=== PATIENT | male | born 1955 | race Caucasian/White ===

== ENCOUNTER 2021-01-11 08:22 | Outpatient (CLI) | payer BC, SELFPAY | END 2021-01-11 08:23 | disposition home or self-care (01) | LOC: ANHAUDIO 08:24 | PROVIDERS: PCP Internal Medicine; Visit Provider Nurse Practitioner Family | DX: H93.13 Tinnitus, bilateral (principal); R42 Dizziness and giddiness; H90.3 Sensorineural hearing loss, bilateral | CPT/HCPCS: 92537; 92540; 92546; 92557; 92567 ==

== ENCOUNTER 2023-12-13 11:26 | Outpatient (CLI) | payer MEDICARE, SELFPAY ==
--- NOTE | ~2023-12-13 | CT_ITS ---
Non-contrast Head CT History: Headache Technique: Axial non-contrast imaging of the brain was performed. Dose reduction technique was used on this scan by utilizing automated exposure control and iterative reconstruction technique. The dose -length product (DLP) was 674.51 mGy-cm. Findings: There is no evidence of intracranial hemorrhage, mass lesion, or acute infarct. Brain par enchyma appears normal. The ventricles and subarachnoid spaces are normal in size. The calvarium ap pears normal. The visualized paranasal sinuses and mastoid air cells are clear. Impression: No significant abnormality seen. Reviewed, dictated and finalized at location . [employer] Impression: No significant abnormality seen.
== END 2023-12-13 11:27 ==
PROVIDERS: Visit Provider Internal Medicine
DX: R51.9 Headache, unspecified (principal)
CPT/HCPCS: 70450

== ENCOUNTER 2024-03-07 00:09 | Day surgery (SDC) | payer MEDICARE, SELFPAY ==
[2024-02-27 12:21] VITALS: BMI 24.6
--- NOTE | 2024-02-28 14:46 | PC.NURSE ---
Spoke with Jean-Pierre regarding his Plavix. Pt. verbalizes understanding that the last dose of Plavix is to be taken on 03/02/24 and the Endoscopist will instruct them when to restart after the procedure.
[2024-03-07 06:24] VITALS: BP 114/75; PULSE 88; RESP 18; TEMP 36; O2SAT 99; BMI 24.0
[2024-03-07] MEDS: LACTATED RINGERS 1,000 ML 150 ML IV CONT (06:27)
--- NOTE | 2024-03-07 07:23 | PM.HPGS ---
History of Present Illness History of Present Illness Consent: Risks, benefits, and alternatives have been discussed and questions answered. Patient agrees to proceed with procedure. Chief complaint: GERD Narrative: Jean-Pierre Zheng is a 68 year old male with h/o DM on meds and intermittent postprandial pain and nausea, had EGD but years ago. No recent abdominal ultrasound. Review of Systems Review of Systems: All systems reviewed & are unremarkable except as noted in HPI and below PMFSH Past Medical History Medical History (Updated 03/07/24 @ 07:24 by Nadir Ross MD) Epigastric pain Family History Family History (Updated 05/20/16 @ 23:19 by DOCTOR UNKNOWN) Mother Cerebrovascular accident Family history of diabetes mellitus in first degree relative Father Family history of diabetes mellitus in first degree relative Family history of congestive heart failure Other Family history of malignant neoplasm Hypertension Social History Social History Smoking status: Former smoker Tobacco type: cigarettes Alcohol intake: current Substance use: never Substance use type: does not use Living arrangements: with family Spiritual care concerns: No Meds Home Medications and Allergies Home Medications Medication Instructions Recorded Confirmed Type aspirin 325 mg tablet,delayed 325 mg PO DAILY 02/27/24 03/07/24 History release (Ecotrin) atorvastatin 80 mg tablet 80 mg PO HS 02/27/24 03/07/24 History clopidogrel 75 mg tablet 75 mg PO DAILY 02/27/24 03/07/24 History empagliflozin 25 mg tablet 25 mg PO DAILY 02/27/24 03/07/24 History (Jardiance) ergocalciferol (vitamin D2) 1,250 50,000 unit PO WEEKLY 02/27/24 03/07/24 History mcg (50,000 unit) capsule ezetimibe 10 mg tablet 10 mg PO DAILY 02/27/24 03/07/24 History insulin aspart U-100 100 unit/mL See Rx Instructions .Route .COMPLEX 02/27/24 03/07/24 History (3 mL) subcutaneous pen (Novolog FlexPen U-100 Insulin aspart) insulin glargine U-300 conc 300 50 unit subcut HS 02/27/24 03/07/24 History unit/mL (3 mL) subcutaneous pen (Toujeo Max U-300 SoloStar) meclizine 25 mg tablet 25 mg PO TID PRN Vertigo 02/27/24 03/07/24 History metformin 500 mg tablet,extended 2,000 mg PO DAILY 02/27/24 03/07/24 History release 24 hr metoprolol tartrate 100 mg tablet 50 mg PO BID 02/27/24 03/07/24 History pantoprazole 40 mg tablet,delayed 40 mg PO DAILY 02/27/24 03/07/24 History release tirzepatide 12.5 mg/0.5 mL 12.5 mg subcut WEEKLY 02/27/24 03/07/24 History subcutaneous pen injector (Konradunmarley) trazodone 100 mg tablet 100 mg PO HS 02/27/24 03/07/24 History Allergies Allergy/AdvReac Type Severity Reaction Status Date / Time No Known Allergies Allergy Verified 03/07/24 06:22 Vital Signs Vital Signs - 24 hr 03/07/24 06:24 Temperature 96.8 F L Pulse Rate 88 Respiratory Rate 18 Blood Pressure 114/75 Pulse Oximetry 99 Oxygen Delivery Room Air Exam Const: General: comfortable and no acute distress HENMT: Face/Nose/Sinus: Normal nares present Eyes: General: appearance normal, both eyes and all related structures Neck: Neck: no JVD Resp: Auscultation: clear to auscultation bilaterally Cardio: Rate: regular rate Rhythm: regular rhythm GI: Inspection: non-distended GI Palp: Yes Soft to palpation Skin: General skin exam: normal color Neuro: General: gait normal Speech: normal speech Extrem: General: normal to inspection Psych: Mental Status: mental status grossly normal Assessment and Plan Assessment and plan (1) Epigastric pain: Code(s): R10.13 - Epigastric pain Status: Acute Assessment and Plan: egd with bx
--- NOTE | 2024-03-07 07:23 | WPDANESEPPF ---
Anes - Initial Pre Proc Eval Procedure: Operation Date: 03/07/24 07:30 Proposed Procedures p Esophagogastroduodenoscopy - Nadir Ross MD Date/Time: 03/07/24 07:23 Surgeon: Nadir Ross MD Pre Op Diagnosis: GERD Patient Data Age: 68 Gender: M Height: 1.73 m Weight: 71.9 kg Last Vital Signs Temp 96.8 F L 03/07/24 06:24 Pulse 88 03/07/24 06:24 Resp 18 03/07/24 06:24 BP 114/75 03/07/24 06:24 Pulse Ox 99 03/07/24 06:24 O2 Del Method Room Air 03/07/24 06:24 Allergies Allergy/AdvReac Type Severity Reaction Status Date / Time No Known Allergies Allergy Verified 03/07/24 06:22 Home Medications Medication Instructions Recorded Confirmed Type aspirin 325 mg tablet,delayed 325 mg PO DAILY 02/27/24 03/07/24 History release (Ecotrin) atorvastatin 80 mg tablet 80 mg PO HS 02/27/24 03/07/24 History clopidogrel 75 mg tablet 75 mg PO DAILY 02/27/24 03/07/24 History empagliflozin 25 mg tablet 25 mg PO DAILY 02/27/24 03/07/24 History (Jardiance) ergocalciferol (vitamin D2) 1,250 50,000 unit PO WEEKLY 02/27/24 03/07/24 History mcg (50,000 unit) capsule ezetimibe 10 mg tablet 10 mg PO DAILY 02/27/24 03/07/24 History insulin aspart U-100 100 unit/mL See Rx Instructions .Route .COMPLEX 02/27/24 03/07/24 History (3 mL) subcutaneous pen (Novolog FlexPen U-100 Insulin aspart) insulin glargine U-300 conc 300 50 unit subcut HS 02/27/24 03/07/24 History unit/mL (3 mL) subcutaneous pen (Toujeo Max U-300 SoloStar) meclizine 25 mg tablet 25 mg PO TID PRN Vertigo 02/27/24 03/07/24 History metformin 500 mg tablet,extended 2,000 mg PO DAILY 02/27/24 03/07/24 History release 24 hr metoprolol tartrate 100 mg tablet 50 mg PO BID 02/27/24 03/07/24 History pantoprazole 40 mg tablet,delayed 40 mg PO DAILY 02/27/24 03/07/24 History release tirzepatide 12.5 mg/0.5 mL 12.5 mg subcut WEEKLY 02/27/24 03/07/24 History subcutaneous pen injector (Jeanne) trazodone 100 mg tablet 100 mg PO HS 02/27/24 03/07/24 History Patient hx anesthesia problems: none Family hx anesthesia problems: none Results Review: All pre-operative results and documents have been reviewed as part of the pre-operative evaluation. [facility] Family History Family History (Updated 05/20/16 @ 23:19 by DOCTOR UNKNOWN) Mother Cerebrovascular accident Family history of diabetes mellitus in first degree relative Father Family history of diabetes mellitus in first degree relative Family history of congestive heart failure Other Family history of malignant neoplasm Hypertension Social History Social History Smoking status: Former smoker Tobacco type: cigarettes Alcohol intake: current Substance use: never Substance use type: does not use Living arrangements: with family Spiritual care concerns: No Anes - Eval Final PreProcedure Day of Procedure 03/07/24 07:23 Patient weight: normal Heart: regular rate and rhythm Lungs: clear to auscultation Airway: Mallampati scale class II Neurological: alert and oriented Last oral intake: >/= 8 hours ASA classification: III Emergent: no Anesthetic plan: proceed Anesthesia type and monitoring: general GIVS and standard monitoring Results Review: All pre-operative results and documents have been reviewed as part of the pre-operative evaluation. Informed Consent: The patient's anesthetic plan and its attendant risks and benefits were discussed with the patient/family/POA. Questions were solicited and answers provided to the satisfaction of the patient/family/POA.
[2024-03-07 07:41] VITALS: BP 98/57; PULSE 87; RESP 19; O2SAT 97
[2024-03-07 07:51] VITALS: BP 103/62; PULSE 86; RESP 18; O2SAT 96
--- NOTE | 2024-03-07 07:56 | SUR.PHASEII ---
Blood sugar checked with patients Dexcom.
[2024-03-07 08:01] VITALS: BP 106/64; PULSE 87; RESP 20; O2SAT 97
== END 2024-03-07 08:11 | disposition home or self-care (01) ==
PROVIDERS: PCP Internal Medicine; Visit Provider Internal Medicine Gastroenterology
PROC: 0DJ08ZZ Inspection of Upper Intestinal Tract, Via Natural or Artificial Opening Endoscopic (ICD-10-PCS; CPT 43235; principal; 2024-03-07 07:30)
DX: C16.0 Malignant neoplasm of cardia (principal); K21.00 Gastro-esophageal reflux disease with esophagitis, without bleeding; K31.84 Gastroparesis; Z79.82 Long term (current) use of aspirin; Z79.02 Long term (current) use of antithrombotics/antiplatelets; Z79.4 Long term (current) use of insulin; Z79.84 Long term (current) use of oral hypoglycemic drugs; Z79.85 Long-term (current) use of injectable non-insulin antidiabetic drugs; Z87.891 Personal history of nicotine dependence; Z80.9 Family history of malignant neoplasm, unspecified; Z82.49 Family history of ischemic heart disease and other diseases of the circulatory system
CPT/HCPCS: 43239; 88305; 88342; J2001; J2704; J7120